=== PATIENT | male | born 1955 | race Caucasian/White ===

== ENCOUNTER → 2019-12-30 | Outpatient (CLI) | payer MEDICARE ==
[2019-12-30 10:20] LABS: BASO % 0.6 % (0.0-1.0); EOS # 0.1 10*3/uL (0.0-0.4); EOS % 1.9 % (1.0-4.0); HEMATOCRIT 40.2 % (42.0-52.0); LYMPH # 0.9 10*3/uL (1.3-4.4); LYMPH % 29.6 % (27.0-41.0); MEAN CELL VOLUME 92.8 fl (80.0-94.0); MEAN CORPUSCULAR HGB 31.6 pg (27.0-31.0); MEAN CORPUSCULAR HGB CONC 34.1 g/dl (33.0-37.0); MEAN PLATELET VOLUME 10.1 fl (9.6-12.3); MONO # 0.3 10*3/uL (0.1-1.0); MONO % 8.5 % (3.0-9.0); NEUT # 1.9 10*3/uL (2.3-7.9); NEUT % 59.1 % (47.0-73.0); PLATELET COUNT AUTOMATED 233 10*3/uL (130-400); RED BLOOD COUNT 4.33 10*6/uL (4.50-5.90); RED CELL DISTRI WIDTH 12.5 % (0-14.5); WHITE BLOOD COUNT 3.2 10*3/uL (4.8-10.8)
[2019-12-30 10:58] LABS: ALBUMIN 3.7 gm/dl (3.1-4.5); ALKALINE PHOSPHATASE 49 U/L (45-117); BUN 22 mg/dl (7-24); CHLORIDE 108 mmol/L (98-107); CHOLESTEROL 190 mg/dL (<200); CREATININE 0.99 mg/dL (0.70-1.30); HDL CHOLESTEROL 76 mg/dl (40-60); LDL CHOLESTEROL 102 mg/dL (9-159); POTASSIUM 4.1 mmol/L (3.5-5.1); SGOT/AST 15 IU/L (3-35); SGPT/ALT 34 U/L (12-78); SODIUM 139 mmol/L (136-145); TOTAL PROTEIN 6.9 gm/dL (6.4-8.2); TRIGLYCERIDES 61 mg/dl (<150); VLDL CHOLESTEROL 12 mg/dL (6-40)
[2019-12-30 11:02] LABS: VITAMIN D, 25-HYDROXY 37.5 ng/mL (30-100)
[2019-12-30 11:04] LABS: FREE T4 0.99 ng/dl (0.76-1.46); THYROID STIM HORMONE (HS) 0.823 uIU/ml (0.358-4.75)
== END | disposition home or self-care (01) ==
LOC: LAB 09:52
PROVIDERS: Internal Medicine
DX: Z12.5 Encounter for screening for malignant neoplasm of prostate (principal); I10 Essential (primary) hypertension; E78.2 Mixed hyperlipidemia; E55.9 Vitamin D deficiency, unspecified; R74.8 Abnormal levels of other serum enzymes; R79.89 Other specified abnormal findings of blood chemistry; R53.81 Other malaise; R70.0 Elevated erythrocyte sedimentation rate

== ENCOUNTER → 2020-04-21 | Outpatient (CLI) | payer MEDICARE | END | disposition home or self-care (01) | LOC: US 08:20 | PROVIDERS: ATTEND Internal Medicine | DX: R10.9 Unspecified abdominal pain (principal) ==

== ENCOUNTER → 2020-04-24 | Outpatient (CLI) | payer MEDICARE | END | disposition home or self-care (01) | LOC: COVID19 00:35 | PROVIDERS: ATTEND Internal Medicine Gastroenterology | DX: Z20.828 Contact with and (suspected) exposure to other viral communicable diseases (principal) ==

== ENCOUNTER → 2020-04-28 | Day surgery (SDC) | payer MEDICARE ==
[~2020-04-28] VITALS: Ht 167.6 cm; Wt 77.1 kg
[~2020-04-28] MED LIST: CRESTOR10 M1 PO; LISINOPRIL10 M1 PO
[2020-04-28 07:09] VITALS: BP 121/64
[2020-04-28 08:17] VITALS: BP 103/56
[2020-04-28 08:32] VITALS: BP 112/62
[2020-04-28 08:47] VITALS: BP 108/58
== END | disposition home or self-care (01) ==
LOC: SDC 04-24 13:15
PROVIDERS: ATTEND Internal Medicine Gastroenterology
DX: Z12.11 Encounter for screening for malignant neoplasm of colon (principal); D12.2 Benign neoplasm of ascending colon; I10 Essential (primary) hypertension; K21.9 Gastro-esophageal reflux disease without esophagitis; E78.5 Hyperlipidemia, unspecified; K64.8 Other hemorrhoids; E78.00 Pure hypercholesterolemia, unspecified; Z79.899 Other long term (current) drug therapy; Z98.890 Other specified postprocedural states

== ENCOUNTER → 2021-05-02 | Outpatient (CLI) | payer MEDICARE | END | disposition home or self-care (01) | LOC: COVID19 15:51 | PROVIDERS: ATTEND Internal Medicine | DX: U07.1 COVID-19 (principal) ==

== ENCOUNTER → 2021-07-12 | Outpatient (CLI) | payer MEDICARE | END | disposition home or self-care (01) | LOC: LAB 12:36 → RAD 12:36 | PROVIDERS: ATTEND Internal Medicine | DX: J98.11 Atelectasis (principal); I10 Essential (primary) hypertension; E78.2 Mixed hyperlipidemia; E55.9 Vitamin D deficiency, unspecified; Z00.00 Encounter for general adult medical examination without abnormal findings ==

== ENCOUNTER → 2021-07-13 | Outpatient (CLI) | payer MEDICARE ==
[2021-07-13 10:35] LABS: EOS # 0.1 10*3/uL (0.0-0.4); EOS % 2.2 % (1.0-4.0); HEMATOCRIT 40.5 % (42.0-52.0); LYMPH # 1.1 10*3/uL (1.3-4.4); LYMPH % 27.5 % (27.0-41.0); MEAN CELL VOLUME 95.5 fl (80.0-94.0); MEAN CORPUSCULAR HGB 32.1 pg (27.0-31.0); MEAN CORPUSCULAR HGB CONC 33.6 g/dl (33.0-37.0); MEAN PLATELET VOLUME 10.5 fl (9.6-12.3); MONO # 0.4 10*3/uL (0.1-1.0); MONO % 10.7 % (3.0-9.0); NEUT # 2.3 10*3/uL (2.3-7.9); NEUT % 57.9 % (47.0-73.0); PLATELET COUNT AUTOMATED 228 10*3/uL (130-400); RED BLOOD COUNT 4.24 10*6/uL (4.50-5.90); RED CELL DISTRI WIDTH 13.2 % (0-14.5)
[2021-07-13 10:55] LABS: ALBUMIN 3.7 gm/dl (3.1-4.5); ALKALINE PHOSPHATASE 50 U/L (45-117); BUN 17 mg/dl (7-24); CHLORIDE 109 mmol/L (98-107); CHOLESTEROL 185 mg/dL (<200); CREATININE 0.95 mg/dL (0.70-1.30); FREE T4 0.99 ng/dl (0.76-1.46); LDL CHOLESTEROL 79 mg/dL (9-159); POTASSIUM 4.8 mmol/L (3.5-5.1); SGOT/AST 14 IU/L (3-35); SGPT/ALT 29 U/L (12-78); SODIUM 141 mmol/L (136-145); TOTAL PROTEIN 6.8 gm/dL (6.4-8.2); TRIGLYCERIDES 109 mg/dl (<150)
[2021-07-13 11:27] LABS: VITAMIN D, 25-HYDROXY 15.5 ng/mL (30-100)
== END | disposition home or self-care (01) ==
LOC: LAB 09:53
PROVIDERS: ATTEND Internal Medicine
DX: Z00.00 Encounter for general adult medical examination without abnormal findings (principal); E55.9 Vitamin D deficiency, unspecified; I10 Essential (primary) hypertension; E11.9 Type 2 diabetes mellitus without complications; E78.2 Mixed hyperlipidemia

== ENCOUNTER → 2021-07-19 | Outpatient (CLI) | payer MEDICARE | END | disposition home or self-care (01) | LOC: LAB 14:51 → CARD 15:00 | PROVIDERS: ATTEND Internal Medicine | DX: R06.02 Shortness of breath (principal); D64.9 Anemia, unspecified ==

== ENCOUNTER → 2021-10-09 | Outpatient (CLI) | payer MEDICARE | END | disposition home or self-care (01) | LOC: RAD 12:19 | PROVIDERS: ATTEND Internal Medicine | DX: M16.11 Unilateral primary osteoarthritis, right hip (principal); I70.201 Unspecified atherosclerosis of native arteries of extremities, right leg ==

== ENCOUNTER → 2022-06-26 | Outpatient (CLI) | payer OTHER | END | disposition home or self-care (01) | LOC: US 07:30 | PROVIDERS: ATTEND Internal Medicine | DX: R10.84 Generalized abdominal pain (principal) ==

== ENCOUNTER → 2022-11-27 | Outpatient (CLI) | payer OTHER | END | disposition home or self-care (01) | LOC: CT 01:09 | PROVIDERS: ATTEND Internal Medicine | DX: Z45.09 Encounter for adjustment and management of other cardiac device (principal); R51.0 Headache with orthostatic component, not elsewhere classified; R42 Dizziness and giddiness ==

== ENCOUNTER → 2022-12-03 | Outpatient (CLI) | payer OTHER ==
[2022-12-03 08:22] LABS: BASO % 1.2 % (0.0-1.0); EOS # 0.1 10*3/uL (0.0-0.4); EOS % 3.5 % (1.0-4.0); HEMATOCRIT 40.9 % (42.0-52.0); LYMPH % 27.5 % (27.0-41.0); MEAN CELL VOLUME 93.6 fl (80.0-94.0); MEAN CORPUSCULAR HGB 32.3 pg (27.0-31.0); MEAN CORPUSCULAR HGB CONC 34.5 g/dl (33.0-37.0); MONO # 0.3 10*3/uL (0.1-1.0); NEUT % 58.2 % (47.0-73.0); PLATELET COUNT AUTOMATED 264 10*3/uL (130-400); RED BLOOD COUNT 4.37 10*6/uL (4.50-5.90); RED CELL DISTRI WIDTH 12.6 % (0-14.5); WHITE BLOOD COUNT 3.5 10*3/uL (4.8-10.8)
[2022-12-03 08:45] LABS: ALKALINE PHOSPHATASE 66 U/L (46-116); BUN 17 mg/dl (9-23); CHLORIDE 106 mmol/L (98-107); CHOLESTEROL 164 mg/dL (<200); FREE T4 1.09 ng/dl (0.89-1.76); LDL CHOLESTEROL 47 mg/dL (9-159); POTASSIUM 4.4 mmol/L (3.4-5.1); SGPT/ALT 23 U/L (10-49); THYROID STIM HORMONE (HS) 1.286 uIU/ml (0.550-4.780); TOTAL PROTEIN 7.1 gm/dL (6.0-8.0); TRIGLYCERIDES 211 mg/dl (<150)
[2022-12-03 08:59] LABS: VITAMIN D, 25-HYDROXY 100.2 ng/mL (30-100)
== END | disposition home or self-care (01) ==
LOC: LAB 00:21 → US 17:00
PROVIDERS: ATTEND Internal Medicine
DX: I65.23 Occlusion and stenosis of bilateral carotid arteries (principal); Z12.5 Encounter for screening for malignant neoplasm of prostate; R06.02 Shortness of breath; E11.65 Type 2 diabetes mellitus with hyperglycemia; E78.2 Mixed hyperlipidemia; D64.9 Anemia, unspecified; M15.0 Primary generalized (osteo)arthritis; R10.84 Generalized abdominal pain; Z57.2 Occupational exposure to dust

== ENCOUNTER 2023-02-16 14:57 | Emergency (ER) | payer OTHER ==
[~2023-02-16] VITALS: Ht 167.6 cm; Wt 79.4 kg
[2023-02-16 15:32] LABS: BASO # 0.1 10*3/uL (0.0-0.1); BASO % 0.8 % (0.0-1.0); EOS # 0.1 10*3/uL (0.0-0.4); EOS % 1.8 % (1.0-4.0); HEMATOCRIT 38.8 % (42.0-52.0); LYMPH # 0.9 10*3/uL (1.3-4.4); LYMPH % 14.2 % (27.0-41.0); MEAN CELL VOLUME 94.4 fl (80.0-94.0); MEAN CORPUSCULAR HGB 31.6 pg (27.0-31.0); MEAN CORPUSCULAR HGB CONC 33.5 g/dl (33.0-37.0); MEAN PLATELET VOLUME 9.8 fl (9.6-12.3); MONO # 0.3 10*3/uL (0.1-1.0); MONO % 5.2 % (3.0-9.0); NEUT # 4.8 10*3/uL (2.3-7.9); NEUT % 76.9 % (47.0-73.0); PLATELET COUNT AUTOMATED 248 10*3/uL (130-400); RED BLOOD COUNT 4.11 10*6/uL (4.50-5.90); RED CELL DISTRI WIDTH 13.3 % (0-14.5); WHITE BLOOD COUNT 6.2 10*3/uL (4.8-10.8)
[2023-02-16 15:55] LABS: ALKALINE PHOSPHATASE 91 U/L (46-116); BUN 10 mg/dl (9-23); CHLORIDE 105 mmol/L (98-107); POTASSIUM 3.9 mmol/L (3.4-5.1); SGPT/ALT 20 U/L (10-49); TOTAL PROTEIN 6.7 gm/dL (6.0-8.0)
[2023-02-16] MEDS ORDERED: BENZONATATE100 M1 PO (16:25)
[2023-02-16] MEDS ORDERED: PROAIR RESPICL90 MCG INH (16:25)
[2023-02-16] MEDS ORDERED: DECADRON4 MG PO (16:25)
== END 2023-02-16 16:42 | disposition home or self-care (01) ==
LOC: ED 14:57
PROVIDERS: Emergency Medicine
DX: R06.02 Shortness of breath (principal); R05.9 Cough, unspecified; I10 Essential (primary) hypertension; E78.00 Pure hypercholesterolemia, unspecified; Z86.16 Personal history of COVID-19

== ENCOUNTER 2023-04-24 11:56 | Emergency (ER) | payer OTHER ==
[~2023-04-24] VITALS: Wt 72.1 kg
[~2023-04-24 11:56] MED LIST changes: +BENZONATATE100 M1 PO; +DECADRON4 MG PO; +PROAIR RESPICL90 MCG INH
== END 2023-04-24 12:55 | disposition home or self-care (01) ==
LOC: ED 11:56
DX: S61.411A Laceration without foreign body of right hand, initial encounter (principal); I10 Essential (primary) hypertension; E78.00 Pure hypercholesterolemia, unspecified; W29.3XXA Contact with powered garden and outdoor hand tools and machinery, initial encounter; Y93.89 Activity, other specified; Y92.89 Other specified places as the place of occurrence of the external cause; Y99.0 Civilian activity done for income or pay

== ENCOUNTER → 2023-09-03 | Outpatient (CLI) | payer MEDICARE ==
[2023-09-03 10:42] LABS: BASO # 0.1 10*3/uL (0.0-0.1); EOS # 0.1 10*3/uL (0.0-0.4); EOS % 2.9 % (1.0-4.0); HEMATOCRIT 41.9 % (42.0-52.0); LYMPH # 1.2 10*3/uL (1.3-4.4); LYMPH % 25.2 % (27.0-41.0); MEAN CELL VOLUME 93.9 fl (80.0-94.0); MEAN CORPUSCULAR HGB 30.5 pg (27.0-31.0); MEAN CORPUSCULAR HGB CONC 32.5 g/dl (33.0-37.0); MEAN PLATELET VOLUME 10.8 fl (9.6-12.3); MONO # 0.5 10*3/uL (0.1-1.0); MONO % 9.6 % (3.0-9.0); NEUT # 2.9 10*3/uL (2.3-7.9); NEUT % 60.7 % (47.0-73.0); PLATELET COUNT AUTOMATED 202 10*3/uL (130-400); RED BLOOD COUNT 4.46 10*6/uL (4.50-5.90); RED CELL DISTRI WIDTH 13.5 % (0-14.5); WHITE BLOOD COUNT 4.8 10*3/uL (4.8-10.8)
[2023-09-03 11:04] LABS: ALKALINE PHOSPHATASE 89 U/L (46-116); BUN 13 mg/dl (9-23); CHLORIDE 105 mmol/L (98-107); CHOLESTEROL 172 mg/dL (<200); FREE T4 1.15 ng/dl (0.89-1.76); LDL CHOLESTEROL 83 mg/dL (9-159); POTASSIUM 4.3 mmol/L (3.4-5.1); SGPT/ALT 51 U/L (5-49); TOTAL PROTEIN 6.9 gm/dL (6.0-8.0); TRIGLYCERIDES 94 mg/dl (<150); VITAMIN D, 25-HYDROXY 31.6 ng/mL (30-100)
== END | disposition home or self-care (01) ==
LOC: LAB 02:25
PROVIDERS: ATTEND Internal Medicine
DX: Z13.0 Encounter for screening for diseases of the blood and blood-forming organs and certain disorders involving the immune mechanism (principal); Z13.1 Encounter for screening for diabetes mellitus; Z13.21 Encounter for screening for nutritional disorder; Z13.220 Encounter for screening for lipoid disorders; Z13.228 Encounter for screening for other metabolic disorders; Z13.29 Encounter for screening for other suspected endocrine disorder; Z13.89 Encounter for screening for other disorder; Z13.9 Encounter for screening, unspecified; E55.9 Vitamin D deficiency, unspecified; Z79.899 Other long term (current) drug therapy

== ENCOUNTER → 2023-09-11 | Outpatient (CLI) | payer MEDICARE | END | disposition home or self-care (01) | LOC: US 01:34 | PROVIDERS: ATTEND Internal Medicine | DX: K76.0 Fatty (change of) liver, not elsewhere classified (principal); R79.89 Other specified abnormal findings of blood chemistry; R74.01 Elevation of levels of liver transaminase levels ==

== ENCOUNTER 2025-05-21 00:04 | Emergency (ER) | payer OTHER ==
[~2025-05-21] VITALS: Ht 167.6 cm; Wt 77.1 kg
[2025-05-21] MEDS ORDERED: Lidocaine Hydrochloride 10 ML SYR UR ONE (01:25)
[2025-05-21 01:48] LABS: BILIRUBIN Negative (Negative); BLOOD 1+ (Negative); CLARITY Clear (Clear); COLOR Yellow (Yellow); KETONE Negative (Negative); LEUKO ESTERASE Negative (Negative); NITRITE Negative (Negative); PH 6.5 (4.5-8.0); SPECIFIC GRAVITY 1.010 (1.001-1.030); UROBILINOGEN 0.2 E.U./dl (0.0-1.0)
[2025-05-21 01:55] LABS: RBC 16-20 rbc/hpf (0-2)
[2025-05-21] MEDS ORDERED: ANUSOL-HC25 MG R (04:21)
[2025-05-21] MEDS ORDERED: MAGNESIUM CITRATE 296 ML BOT PO ONE (04:25)
== END 2025-05-21 04:31 | disposition home or self-care (01) ==
LOC: ED 00:04
PROVIDERS: Emergency Medicine
DX: R33.9 Retention of urine, unspecified (principal); K59.00 Constipation, unspecified; K64.9 Unspecified hemorrhoids; I10 Essential (primary) hypertension; E78.00 Pure hypercholesterolemia, unspecified; Z86.16 Personal history of COVID-19

== ENCOUNTER 2025-05-22 14:44 | Emergency (ER) | payer OTHER ==
[~2025-05-22] VITALS: Ht 167.6 cm; Wt 77.1 kg
[~2025-05-22 14:44] MED LIST changes: +ANUSOL-HC25 MG R
== END 2025-05-22 15:27 | disposition home or self-care (01) ==
LOC: ED 14:44
DX: Z46.6 Encounter for fitting and adjustment of urinary device (principal); I10 Essential (primary) hypertension; E78.00 Pure hypercholesterolemia, unspecified; Z86.16 Personal history of COVID-19